=== PATIENT | female | born 1960 | race Hispanic/Latino ===

== ENCOUNTER 2018-02-12 09:10 | Observation (INO) | payer SELFPAY ==
[~2018-02-12] VITALS: Ht 152.4 cm; Wt 72.8 kg
[2018-02-12 09:57] LABS: BASOPHILS % (AUTO) 0.5 % (0.0-5.0); HEMATOCRIT 34.8 % (36-48); LYMPHOCYTES % (AUTO) 21.7 % (21.0-51.0); MEAN CORPUSCULAR HEMOGLOBIN 32.2 pg (27.0-33.0); MEAN CORPUSCULAR HGB CONC 35.4 g/dL (32.0-36.0); MONOCYTES % (AUTO) 6.9 % (3.0-13.0); NEUTROPHILS % (AUTO) 69.9 % (40.0-77.0); NUCLEATED RED BLOOD CELLS 0.2 % (0.0-0.19); PLATELET COUNT (AUTO) 269 K/uL (130-400); RED BLOOD CELL COUNT(AUTO) 3.82 MIL/uL (4.00-5.50); RED CELL DISTRIBUTION WIDTH 12.2 % (11.0-15.5); WHITE BLOOD COUNT (AUTO) 9.2 K/uL (4.8-10.8)
[2018-02-12] MEDS ORDERED: ONDANSETRON HCL MDV 20ML 2 MG/ML VIAL ONE (10:11)
[2018-02-12] MEDS ORDERED: MECLIZINE HCL 25 MG TABLET ONE ×3 (10:11→19:57)
[2018-02-12 10:29] LABS: INR 0.97 (0.85-1.15); PARTIAL THROMBOPLASTIN TIME 26.7 SEC (26.3-35.5); PROTHROMBIN TIME 10.2 SEC (9.6-11.6)
[2018-02-12 10:46] LABS: CARBON DIOXIDE 29 mmol/L (21-32); CHLORIDE 103 mmol/L (101-111); CREATININE 0.9 mg/dL (0.5-1.5); GLOMERULAR FILTR. RATE CALC 69 mL/min (>60); GLUCOSE,RANDOM 181 mg/dL (70-105); SODIUM SERUM 141 mmol/L (136-145); UREA NITROGEN, BLOOD 17 mg/dL (7-18)
[2018-02-12 11:04] LABS: ALANINE AMINOTRANSFERASE 24 U/L (12-78); ALBUMIN 3.6 g/dL (3.5-5.0); ASPARTATE AMINOTRANSFERASE 20 U/L (10-37); BILIRUBIN,TOTAL 0.4 mg/dL (0.2-1.0); CREATINE KINASE MB < 0.5 ng/mL (0.5-3.6); CREATINE KINASE, TOTAL 64 U/L (21-232); TOTAL PROTEIN, SERUM 7.8 g/dL (6.0-8.3)
[2018-02-12] MEDS ORDERED: PANTOPRAZOLE SODIUM 40 MG TABLET.DR PO ONE (19:58)
[2018-02-12] MEDS ORDERED: DEXTROSE 5 % AND 0.9 % NACL 1,000 ML IV SCH (20:00)
[2018-02-12] MEDS ORDERED: ONDANSETRON HCL MDV 20ML 2 MG/ML VIAL IVP PRN ×2 (20:00→20:45)
[2018-02-12] MEDS ORDERED: MECLIZINE HCL 25 MG TABLET PO PRN (20:45)
[2018-02-12] MEDS ORDERED: DEXTROSE 50%-WATER 50 ML DISP.SYRIN IV PRN (20:45)
[2018-02-12] MEDS ORDERED: ACETAMINOPHEN 325 MG TAB PO PRN (20:45)
[2018-02-12] MEDS ORDERED: GLUCAGON 1MG KIT 1 MG ML IM PRN (20:45)
[2018-02-13] MEDS: INSULIN LISPRO 100 UNIT/ML 3ML SQ SCH ×4 (07:30→21:36)
[2018-02-13] MEDS: MECLIZINE HCL 25 MG TABLET PO SCH ×3 (08:00→23:59)
[2018-02-13] MEDS ORDERED: ENOXAPARIN SODIUM 40 MG/0.4 ML SYRINGE SQ ONE (08:35)
[2018-02-13] MEDS: LORATADINE/PSEUDOEPHED 5/120 MG 1 EACH TAB.SR.12H PO SCH ×2 (09:00→21:00)
[2018-02-13] MEDS: INSULIN GLARGINE 100 UNITS/ML 10 ML VIAL SQ SCH (09:00)
[2018-02-13] MEDS ORDERED: PANTOPRAZOLE SODIUM 40 MG TABLET.DR PO SCH (09:00)
[2018-02-13] MEDS: ENOXAPARIN SODIUM 40 MG/0.4 ML SYRINGE SQ SCH (09:00)
[2018-02-13] MEDS: FAMOTIDINE 20MG TAB 20 MG TAB PO SCH (09:00)
[2018-02-13] MEDS ORDERED: FAMOTIDINE 20MG TAB 20 MG TAB ONE (09:51)
[2018-02-13 10:19] VITALS: BP 122/65
[2018-02-13] MEDS ORDERED: INSU100C6 SQ (10:41)
[2018-02-13] MEDS ORDERED: INSU100V12 SQ (10:41)
[2018-02-13] MEDS ORDERED: PRAV20TA4 PO (10:41)
[2018-02-13] MEDS ORDERED: FOLI1TAB48 PO (10:41)
[2018-02-13] MEDS ORDERED: BIOT1TAB16 PO (10:41)
[2018-02-13] MEDS ORDERED: METF500T6 PO (10:41)
[2018-02-13] MEDS ORDERED: ASPI-1197 PO (10:41)
[2018-02-13] MEDS ORDERED: ALOE25CA2 PO (10:41)
[2018-02-13] MEDS ORDERED: GABA-531 PO (10:41)
[2018-02-13] MEDS ORDERED: [UNRECOGNIZED DRUG - CODE] PO (10:41)
[2018-02-13] MEDS ORDERED: MECLIZINE HCL 25 MG TABLET ONE (10:45)
[2018-02-13 11:07] VITALS: BP 144/72
[2018-02-13 15:51] VITALS: BP 184/88
[2018-02-13] MEDS ORDERED: HYDRALAZINE HCL 20 MG/ML VIAL IV PRN (16:15)
[2018-02-13 19:20] VITALS: BP 137/72
[2018-02-13] MEDS ORDERED: LORATADINE/PSEUDOEPHED 5/120 MG 1 EACH TAB.SR.12H PO SCH (21:45)
[2018-02-13 23:26] VITALS: BP 114/55
[2018-02-14 03:17] VITALS: BP 140/77
[2018-02-14 04:32] LABS: HEMATOCRIT 33.9 % (36-48); MEAN CORPUSCULAR HEMOGLOBIN 32.5 pg (27.0-33.0); MEAN CORPUSCULAR HGB CONC 35.6 g/dL (32.0-36.0); MEAN CORPUSCULAR VOLUME 91.4 fL (79-99); NUCLEATED RED BLOOD CELLS 0.1 % (0.0-0.19); PLATELET COUNT (AUTO) 283 K/uL (130-400); RED BLOOD CELL COUNT(AUTO) 3.71 MIL/uL (4.00-5.50); RED CELL DISTRIBUTION WIDTH 12.1 % (11.0-15.5); WHITE BLOOD COUNT (AUTO) 9.2 K/uL (4.8-10.8)
[2018-02-14 04:49] LABS: CREATININE 0.8 mg/dL (0.5-1.5); POTASSIUM 3.5 mmol/L (3.5-5.1)
[2018-02-14 05:16] LABS: BAND NEUTROPHILS % (MANUAL) 4 % (0-2); EOSINOPHILS % (MANUAL) 1 % (1-6); LYMPHOCYTES % (MANUAL) 16 % (22-44); MONOCYTES % (MANUAL) 2 % (2-9); SEGMENTED NEUTROPHILS % 77 % (40-70)
[2018-02-14 05:17] LABS: MAN.DIFF COMMENT-IMPRESSION MANUAL DIFFERENTIAL; PLATELET MORPHOLOGY COMMENT ADEQUATE
[2018-02-14] MEDS: MECLIZINE HCL 25 MG TABLET PO SCH (06:21)
[2018-02-14] MEDS: INSULIN LISPRO 100 UNIT/ML 3ML SQ SCH ×2 (06:40→11:30)
[2018-02-14 07:21] VITALS: BP 151/83
[2018-02-14] MEDS ORDERED: LISINOPRIL 5 MG TABLET PO SCH (09:00)
[2018-02-14] MEDS: INSULIN GLARGINE 100 UNITS/ML 10 ML VIAL SQ SCH (09:38)
[2018-02-14] MEDS: LORATADINE/PSEUDOEPHED 5/120 MG 1 EACH TAB.SR.12H PO SCH (09:42)
[2018-02-14] MEDS: FAMOTIDINE 20MG TAB 20 MG TAB PO SCH (09:42)
[2018-02-14] MEDS: ENOXAPARIN SODIUM 40 MG/0.4 ML SYRINGE SQ SCH (09:43)
[2018-02-14 11:17] VITALS: BP 166/85
[2018-02-14] MEDS ORDERED: HYDRALAZINE HCL 25 MG TABLET PO SCH ×2 (12:00→21:00)
[2018-02-14 15:34] VITALS: BP 116/70
== END 2018-02-14 17:30 | disposition home or self-care (01) ==
LOC: EDH 09:10 → INTOOBSV 09:11 → EDHIP 09:11 → WSH 02-13 11:05
PROVIDERS: ADMIT Family Medicine; ATTEND Family Medicine
DX: R42 Dizziness and giddiness (principal); E11.9 Type 2 diabetes mellitus without complications; E78.5 Hyperlipidemia, unspecified; I10 Essential (primary) hypertension; J30.2 Other seasonal allergic rhinitis; H91.92 Unspecified hearing loss, left ear; H93.19 Tinnitus, unspecified ear; Z79.4 Long term (current) use of insulin
CPT/HCPCS: 36415 ×2; 70450; 80048; 80053; 82550; 82553; 82948 ×6; 84484; 85025 ×2; 85610; 85730; 86677; 93005; 96372 ×3; 96374; 97161; 99285; G0378 ×56; G8978; G8979; G8980; G8981; G8982; G8983; J0360; J1650 ×2; J7042

== ENCOUNTER 2022-09-29 06:57 | Day surgery (SDC) | payer OTHER, MEDICARE ==
[2022-09-27 08:29] LABS: BASOPHILS % (AUTO) 0.4 % (0.0-5.0); EOSINOPHILS % (AUTO) 3.9 % (0.0-8.0); HEMATOCRIT 33.6 % (36-48); LYMPHOCYTES % (AUTO) 24.8 % (21.0-51.0); MEAN CORPUSCULAR HEMOGLOBIN 31.3 pg (27.0-33.0); MEAN CORPUSCULAR VOLUME 94.6 fL (79-99); MONOCYTES % (AUTO) 6.6 % (3.0-13.0); NEUTROPHILS % (AUTO) 63.9 % (40.0-77.0); PLATELET COUNT (AUTO) 298 K/uL (130-400); RED BLOOD CELL COUNT(AUTO) 3.55 MIL/uL (4.00-5.50); RED CELL DISTRIBUTION WIDTH 11.9 % (11.0-15.5); WHITE BLOOD COUNT (AUTO) 7.4 K/uL (4.8-10.8)
[2022-09-27 08:41] LABS: APPEARANCE,URINE CLEAR (CLEAR); BILIRUBIN,URINE NEGATIVE (NEGATIVE); COLOR,URINE LIGHT-YELLOW (YELLOW); GLUCOSE, URINE (UA) NEGATIVE (NEGATIVE); KETONES,URINE NEGATIVE (NEGATIVE); LEUKOCYTE ESTERASE ,URINE NEGATIVE Leu/uL (NEGATIVE); NITRATE,URINE NEGATIVE (NEGATIVE); PROTEIN,URINE 200 mg/dL (NEGATIVE); UROBILINOGEN,URINE 0.2 mg/dL (0.2-1.0)
[2022-09-27 08:45] LABS: INR 0.93 (0.85-1.15); POTASSIUM 4.4 mmol/L (3.5-5.1)
[2022-09-27 08:46] LABS: BACTERIA,URINE Rare /HPF (None Seen); WBC,URINE 1 /HPF (0-1)
[2022-09-27 08:47] LABS: SQUAMOUS EPITHELIAL CELL,UR Rare /HPF (0-2)
[2022-09-27 08:47] LABS: PARTIAL THROMBOPLASTIN TIME 29.3 SEC (26.3-35.5)
[2022-09-28 10:01] VITALS: BP 189/82
[~2022-09-29] VITALS: Ht 152.4 cm; Wt 72.6 kg
[2022-09-29] VITALS (18 sets, daily range): BP systolic 42–164; BP diastolic 42–84
[2022-09-29] MEDS: CEFAZOLIN SODIUM 1 GM VIAL IVPB SCH ×2 (06:00→09:48)
[~2022-09-29 06:57] MED LIST: AMOX500C2 PO; ASPI-1197 PO; DULA1.5P SQ; DULO30CA52 PO; FENTANYL CITRATE PF 50 MCG/1 ML 5ML AMP IV ONE; GENTAMICIN 80 MG/NS 100 ML PB 100 ML IV SCH; INSU100V12 SQ; LEVO25CA4 PO; OLME20TA22 PO; ROSU5TAB12 PO
[2022-09-29] MEDS ORDERED: CEFAZOLIN SODIUM 1 GM VIAL ONE (07:07)
[2022-09-29] MEDS ORDERED: 0.9%NACL 1000ML 1,000 ML IV ONE (07:18)
[2022-09-29] MEDS ORDERED: ESTROGENS,CONJUGATED 0.625 MG/GM 42.5 GM VAG CRM VG ONE (07:54)
[2022-09-29] MEDS ORDERED: MORPHINE PF 100MG/10ML AMP IV ONE (07:58)
[2022-09-29] MEDS ORDERED: LIDOCAINE 1%-EPI 1:100,000 20 ML VIAL IJ SCH (08:00)
[2022-09-29] MEDS ORDERED: ONDANSETRON 4MG INJ ONE (08:22)
[2022-09-29] MEDS ORDERED: MIDAZOLAM HCL 1 MG/ML 2ML VIAL ONE (08:22)
[2022-09-29] MEDS ORDERED: SUCCINYLCHOLINE CHLORIDE 20 MG/ML 10 ML VIAL ONE (08:22)
[2022-09-29] MEDS ORDERED: DEXAMETHASONE SOD PHOSPHATE 10MG/ML 1ML VIAL ONE (08:22)
[2022-09-29] MEDS ORDERED: LIDOCAINE PF 100MG/5ML (2%) SYRINGE 5ML ONE (08:22)
[2022-09-29] MEDS ORDERED: PROPOFOL 10 MG/ML 20ML VIAL IV ONE (08:23)
[2022-09-29] MEDS ORDERED: ROCURONIUM 10MG/1ML SYR 10 MG/ML ML ONE (08:23)
[2022-09-29] MEDS ORDERED: GLYCOPYRROLATE 1 MG/5 ML SYRINGE ONE (08:23)
[2022-09-29] MEDS ORDERED: NEOSTIGMINE 5MG/5ML SYR IV ONE (08:23)
[2022-09-29] MEDS ORDERED: FENTANYL CITRATE PF 50 MCG/1 ML 5ML AMP IV ONE (08:24)
[2022-09-29] MEDS ORDERED: EPHEDRINE SULFATE 50 MG/ML AMPULE ONE (09:59)
[2022-09-29] MEDS ORDERED: FENTANYL CITRATE PF 50 MCG/1 ML 2ML VIAL ONE ×2 (11:20→12:16)
[2022-09-29] MEDS ORDERED: MEPERIDINE-PF 25 MG/ML SYG ONE ×2 (12:26→12:35)
== END 2022-09-29 14:00 | disposition home or self-care (01) ==
LOC: DAH 06:57
PROVIDERS: ATTEND Urology
DX: N39.3 Stress incontinence (female) (male) (principal); Z20.822 Contact with and (suspected) exposure to COVID-19; I10 Essential (primary) hypertension; K21.9 Gastro-esophageal reflux disease without esophagitis; E11.9 Type 2 diabetes mellitus without complications; M19.90 Unspecified osteoarthritis, unspecified site; Z79.01 Long term (current) use of anticoagulants; Z79.899 Other long term (current) drug therapy; Z90.710 Acquired absence of both cervix and uterus; Z90.49 Acquired absence of other specified parts of digestive tract; Z98.890 Other specified postprocedural states; Z79.82 Long term (current) use of aspirin; Z79.890 Hormone replacement therapy
CPT/HCPCS: 80048; 85025; 85610; 85730; 87088; 87426; 81001; 36415; 71045; 93005; 57288; 82948 ×2; C2631; A4663; J7030 ×2; A4215 ×2; A4344; J3010 ×4; J0690 ×2; J3490 ×2; J1100; J2710; J0330; J2001; J2250; J2704; J2274; J2405; J2175 ×2; G0168; A4223; A4222; A4221; A4600; J1580